=== PATIENT | female | born 1950 | race Caucasian/White ===

== ENCOUNTER 2019-10-02 21:13 | Inpatient (IN) ==
[2019-10-02] MEDS ORDERED: MORPHINE IV ONE (22:10)
[2019-10-02] MEDS ORDERED: ZOFRAN IV ONE (22:11)
[2019-10-02] MEDS ORDERED: BENADRYL IV ONE (22:23)
--- NOTE | 2019-10-02 22:24 | PROVIDER DOCUMENTATION ---
This chart was entered by Lizz Theodore Scribe, acting as scribe for Alejo Cruz MD. HPI-General Adult - General Chief Complaint: Fall Stated Complaint: Fall Time Seen by Provider: 10/02/19 21:32 Source: patient - History of Present Illness -Gen Adult Nature of Presenting Problems: pt is a 38 yr old female presenting via EMS post fall. pt complains of right hip/leg pain. pt admits tripping over a chair causing fall, landed on right hip, struck head during landing, pt denies LOC, is not on blood thinners. pt admits headache and right hip/leg pain. shortening and rotation present. Location of Pain/Injury: reports: head, pelvis (right), lower extremity (right upper leg) Pain Radiation: reports: no radiation Quality of Pain: reports: aching Severity: reports: moderate Onset/Duration: reports: this evening Timing: reports: still present Context/Activities at Onset: reports: recent trauma history (fall tonight) Modifying Factors: improves with: movement (increases pain) Associated Symptoms: reports: headaches, joint pain, trouble walking (unable to bear weight). denies: back/neck pain, chest pain, dizziness, muscle aches, nausea, sensory/motor loss, vomiting Similar Symptoms Previously?: No Recently seen or treated by another doctor?: No Review of Systems - Adult - REVIEW OF SYSTEMS - ADULT Constitutional: denies: chills, fever Eyes: reports: no symptoms reported Ears, Nose, Mouth & Throat: denies: ear pain, sinus problem, throat pain Cardiovascular: denies: chest pain, palpitations, syncope Respiratory: denies: cough, dyspnea on exertion, wheezing Gastrointestinal: denies: abdominal pain, nausea, vomiting Genitourinary: reports: no symptoms reported Musculoskeletal: reports: bone pain (right upper leg), back pain (chronic), joint pain (right hip). denies: neck pain Integumentary: reports: no symptoms reported Neurological: reports: headache/migraines. denies: dizziness/vertigo, loss of balance, syncope Psychiatric: reports: no symptoms reported Endocrine: reports: no symptoms reported Hematologic/Lymphatic: reports: no symptoms reported Allergic/Immunologic: reports: no symptoms reported All Other Systems: Reviewed and Negative Past History - Adult - PAST MEDICAL HISTORY-ADULT Review of Records: reports: Old Records Reviewed, Nursing Assessment Review, Medications Reviewed, Social history reviewed & non-contributory. Major Childhood Illnesses: reports: denies history Cardiovascular: reports: denies history Respiratory: reports: denies history Gastrointestinal: reports: denies history Obstetrical/Gynecological: reports: denies history Genitourinary: reports: denies history Musculoskeletal: reports: denies history Neurological: reports: denies history Endocrine/Immune: reports: denies history Other Conditions: reports: denies history - IMMUNIZATION STATUS Childhood Immunizations: See Nurse Assessment Flu Vaccine: See Nurse Assessment - FAMILY HISTORY Family History: reviewed, not pertinent - SOCIAL HISTORY Smoking: cigarettes Provider spent 3-5 mins advising pt. on dangers of tobacco.: Discussed manners to quit use, and f/u contacts for add'l counseling. Substance Use: denies Living Situation: family Physical Exam-General - PHYSICAL EXAM-ADULT Initial Vital Signs Reviewed: Yes - CONSTITUTIONAL General Appearance: appears well, alert, no apparent distress - EYES Eyes: PERRL/EOMI - HEAD, EARS, NOSE, MOUTH & THROAT HENMT: normocephalic/atraumatic, moist mucous membranes, normal ENT inspection - NECK Neck: non-tender, full range of motion, supple, normal inspection - RESPIRATORY Respiratory: chest non-tender, lungs clear, normal breath sounds, no respiratory distress, no accessory muscle use - CARDIOVASCULAR Cardiovascular: normal peripheral pulses, regular rate, rhythm, no edema - GASTROINTESTINAL (ABDOMEN) Abdominal Exam: normal bowel sounds, non tender, soft - LYMPHATIC Lymphatic: no adenopathy - MUSCULOSKELETAL Back Exam: normal inspection, no CVA tenderness, no vertebral tenderness Extremity: tenderness (right hip, right upper leg), other (shortening/rotation to right leg) - SKIN Integumentary: normal color, normal turgor, warm/dry - NEUROLOGIC Neurologic: grossly normal, no motor/sensory deficits - PSYCHIATRIC Psych/Mental Status: normal mood/affect Progress - PLAN OF CARE/RESULTS Progress/Plan/Lab Results: Orders Category Date Time Status XRAY PELVIS W/HIP 2-3VW RT [RAD] Stat Exams 10/02/19 21:32 Ordered - CONSULTS/PCP/HOSPITALIST Notification #1 *Consult/PCP/Hospitalist*: Dr Courtney Time Discussed: 22:10 Reason/Comments: discussed plan of care for pt consult Consult Disposition: Admit (admit to hospitalist, will consult in AM) #2 Consult: DR. LOCKWOOD Time Discussed: 22:20 Consult Disposition: Admit Departure - Departure Date of Disposition Decision: 10/02/19 Time of Disposition Decision: 21:51 DIAGNOSIS: Intertrochanteric fracture of right hip Disposition: ADMITTED INPATIENT 09 Certified Medical Emergency: Emergent Condition: Stable - Critical Care Note This patient required my direct & personal management of CC.: No Attestation - Physician/ GOPAL Attestation Patient care was provided by Advanced Practice Provider:: No The physician spent face to face time with patient:: Yes Advanced Practice Provider documentation review:: Supervising physician onsite and consulted in the evaluation and care of this patient. The physician did have a face to face encounter with the patient. This chart was documented by the indicated scribe, (Lizz Theodore, [place]) and accurately reflects the services I performed and decisions made by me, Alejo Cruz MD, as attested by the provider's signature.
[2019-10-02] MEDS ORDERED: ZOFRAN IV PRN (23:42)
[2019-10-02] MEDS ORDERED: TYLENOL PO PRN (23:42)
[2019-10-03 00:30] LABS: URINE SOURCE CLEAN CATCH
[2019-10-03] MEDS: MORPHINE IV PRN ×6 (00:30→19:26)
[2019-10-03 00:39] LABS: BILIRUBIN URINE NEGATIVE (NEGATIVE); BLOOD URINE NEGATIVE (NEGATIVE); COLOR STRAW; GLUCOSE URINE NEGATIVE (NEGATIVE); KETONE URINE NEGATIVE (NEGATIVE); LEUKOCYTES URINE NEGATIVE (NEGATIVE); NITRITE URINE NEGATIVE (NEGATIVE); PH URINE 7.5; PROTEIN URINE NEGATIVE (NEGATIVE); SP GRAVITY URINE 1.007; TURBIDITY URINE CLEAR (CLEAR); UR EPITHELIAL CELLS <10 /HPF (<10); URINE BACTERIA NEGATIVE /HPF; URINE RBC <10 /HPF (<10); URINE WBC <10 /HPF (<10); UROBILINOGEN URINE NORMAL (NORMAL)
[2019-10-03] MEDS ORDERED: NICODERM PATCH TD ONE (00:46)
[2019-10-03 01:14] LABS: BASO# 0.02 X1000 (0.0-0.2); BASO% 0.2 % (0.0-0.8); EOS# 0.02 X1000 (0.0-0.7); EOS% 0.2 % (0.0-10.0); HEMATOCRIT 37.6 % (37.0-47.0); HEMOGLOBIN 12.5 g/dL (12.0-16.0); LYMPH# 1.48 X1000 (1.2-3.4); MCH 31.8 PG (27-31); MCHC 33.2 g/dL (33-37); MCV 95.7 FL (81-99); MONO# 0.69 X1000 (0.11-0.59); MONO% 7.4 % (1.7-9.3); MPV 12.1 FL (7.4-10.4); NEUT# 7.06 X1000 (1.4-6.5); NEUT% 76.2 % (42.2-75.2); PLT 115 X1000 (130-400); RBC 3.93 XMIL (4.2-5.4); RDW 12.9 % (11.5-14.5); WBC 9.27 X1000 (4.8-10.8)
[2019-10-03 01:28] LABS: INR 1.05; PROTIME 13.9 Seconds (11.0-16.0)
[2019-10-03 01:29] LABS: PTT 29.5 Seconds (22.3-41.8)
[2019-10-03 01:33] LABS: AGAP 11; ALB/GLOB RATIO 1.6; ALBUMIN 4.2 g/dL (3.5-5.0); ALKALINE PHOSPHATASE 68 U/L (32-104); BUN 8 mg/dL (8-22); CALCIUM 9.2 mg/dL (8.8-10.2); CHLORIDE 100 mmol/L (98-107); COSMO 280; CREATININE 0.7 mg/dL (0.5-0.9); ESTIMATED GFR > 60; GLUCOSE 107 mg/dL (70-104); GOT 28 U/L (10-30); GPT 17 U/L (10-36); POTASSIUM 3.7 mmol/L (3.5-5.1); SODIUM 141 mmol/L (136-145); TCO2 30 mmol/L (25-35); TOTAL BILIRUBIN 0.65 mg/dL (0.20-1.00); TOTAL PROTEIN 6.9 g/dL (6.3-8.3)
[2019-10-03] MEDS: NS 1,000 ML IV SCH ×3 (03:12→19:31)
--- NOTE | 2019-10-03 04:24 | HISTORY AND PHYSICAL ---
CHIEF COMPLAINT: Fall. HPI: Mrs. Beasley is a very pleasant 68-year-old female who comes into the emergency room tonight after having a fall. She states that she felt like she hit the side of a chair and tripped. She fell backwards, hitting the back of her head and landing mostly on her right hip. The main reason she came in was right hip pain. She has a headache, 10 out of 10 right leg pain. The leg is visibly shortened and externally rotated. She was unable to bear weight. Her only past medical history is hypertension. Laboratory data is pending, however, an x-ray was obtained which showed a right intertrochanteric hip fracture. She will be admitted with surgical consultation. PAST MEDICAL HISTORY: See HPI. PREVIOUS SURGICAL HISTORY: Seven lower back surgeries, cervical spine surgery, a left wrist surgery, a right foot surgery, and 2 C-sections. SOCIAL HISTORY: She lives with her . She is retired. One pack per day smoker. Smoking cessation was gone over with the patient. She denies wanting to quit at this time. No alcohol. No illicit drugs. FAMILY HISTORY: Dad had coronary artery disease. Had his first ME at age 42. ALLERGIES: NO KNOWN DRUG ALLERGIES. HOME MEDICATIONS: 1. Lasix 20 mg p.o. daily. 2. Neurontin 400 mg p.o. daily. 3. Trazodone 150 mg p.o. at bedtime. 4. Butrans 1 patch transdermally every 7 days. 5. Lisinopril 20 mg p.o. q.a.m. REVIEW OF SYSTEMS: A 14 point review of systems was conducted with the patient. Pertinent positives are listed above in the HPI. All other systems reviewed and found to be negative. PHYSICAL EXAMINATION: VITAL SIGNS: Temperature 98.5, pulse 79, respirations 20, blood pressure 199/81, oxygen saturation 99% on room air. GENERAL: Pleasant 68-year-old female lying on the ER stretcher. She is alert and oriented x3. Answers questions appropriately. She is accompanied by her . Very supportive. She is in no acute distress. HEENT: Head is normocephalic. Posterior portion of her head is tender to palpation. There is a mild hematoma there. Pupils are equal, round, reactive to light. Extraocular eye movements intact. Sclera anicteric. Conjunctiva pink. Oral mucosa is moist. NECK: Supple. No JVD. No thyromegaly. Trachea is midline. No cervical lymphadenopathy. CARDIAC: S1, S2 appreciated. No murmurs, gallops, rubs. LUNGS: Clear to auscultation bilaterally. No rhonchi, wheeze, rales. Symmetric rise and fall of respirations. ABDOMEN: Soft, nondistended, nontender. Bowel sounds present all 4 quadrants. Normoactive. No pulsatile masses or organomegaly. EXTREMITIES: No clubbing, cyanosis or edema, 2+ pedal pulses bilaterally. MUSCULOSKELETAL: Right lower extremity is externally rotated and shorter than the left lower extremity. She is neurovascularly intact. She is able to wiggle her toes. Left lower extremity has 5/5 strength. SKIN: Warm, dry and intact. No acute lesions or rash. GENITOURINARY: No bladder distention. Patient voids. Otherwise deferred. NEUROLOGICAL: Alert and oriented x3. Cranial nerves 2-12 grossly intact. DIAGNOSTIC DATA: Right hip x-ray shows a right intertrochanteric hip fracture. Chest x-ray is pending. Laboratory data is pending. Urine is unremarkable. IMPRESSION: 1. Right intertrochanteric hip fracture. 2. Hypertension. 3. Headache secondary to fall with head trauma. 4. Tobacco abuse. PLAN: Admit patient to the surgical floor. Will get a CT scan of her head to rule out bleed. N.p.o. after midnight. NicoDerm patch 21 mg daily, morphine as needed for pain, Zofran for nausea, pain medication makes the patient itch. Will give the patient along with pain medication. Will review laboratory data when it is completed. Further recommendations based on patient's clinical course. Dictated by ANAY Dougherty for Winston Lane MD cc: ANAY Dougherty MD
--- NOTE | 2019-10-03 07:27 | Diag Imaging Result Doc PS360 ---
EXAM: XRAY PELVIS W/HIP 2-3VW RT 10/02/2019 HISTORY: right hip injury TECHNIQUE: AP portable pelvis and right hip COMMENT: There is an intertrochanteric fracture of the right femur. There are deformities in the inferior pubic ramus on the left which are presumably due to previous fracture. There is extensive postsurgical change in the lumbar spine and sacrum. IMPRESSION: Intertrochanteric fracture of the right femur. Electronically signed by Geronimo Clark 10/03/2019 7:24 AM
--- NOTE | 2019-10-03 07:28 | Diag Imaging Result Doc PS360 ---
EXAM: CHEST-1 VIEW 10/02/2019 HISTORY: right hip fracture TECHNIQUE: AP portable at 2151 COMMENT: There is no evidence of acute cardiac or pulmonary disease and no previous studies are available for comparison. IMPRESSION: No acute disease. Electronically signed by Geronimo Clark 10/03/2019 7:26 AM
--- NOTE | 2019-10-03 07:28 | Diag Imaging Result Doc PS360 ---
EXAM: FEMUR MIN 2 VIEWS RIGHT 10/02/2019 HISTORY: right upper thigh pain TECHNIQUE: Right femur two views COMMENT: There is some patchy osteoporosis in the distal femur and patella. There is no evidence of acute fracture or dislocation. IMPRESSION: No acute bony abnormality. Electronically signed by Geronimo Clark 10/03/2019 7:25 AM
[2019-10-03] MEDS: BENADRYL IV PRN ×3 (07:39→19:26)
--- NOTE | 2019-10-03 08:20 | Diag Imaging Result Doc PS360 ---
EXAM: CT HEAD/C-SPINE W/O CONTRAST INDICATION: fall hitting the back of head TECHNIQUE: This exam was performed using automated exposure control, adjustment of mA or kV according to patient size, and/or use of iterative reconstruction technique. COMPARISON: None. FINDINGS: Head: There is a chronic pontine lacunar infarct on the left. There is no definite acute infarct given the limited sensitivity of CT versus MRI. There is no discrete intracranial mass, mass effect, or intracranial hemorrhage. There is suggestion of mild scalp edema posteriorly on the right. The calvaria is intact. C-spine: There has been prior anterior cervical fusion at C5-6 and C6-7. Metallic hardware is in place. There is advanced degenerative facet arthropathy at multiple levels throughout the cervical spine. There is more moderate degenerative disc disease at multiple levels. These degenerative changes are causing bony foraminal stenosis at multiple levels. Otherwise, there is no discrete fracture, acute subluxation, or intrinsic osseous lesion. There are mild emphysematous changes at the lung apices. Surrounding soft tissues are essentially unremarkable, otherwise. IMPRESSION: 1.Chronic pontine lacunar infarct as described. No evidence of acute intracranial pathology. 2.Advanced multilevel degenerative arthropathy throughout the cervical spine but no evidence of fracture or other definite acute C-spine injury. Electronically signed by Tito Rodriguez 10/03/2019 8:18 AM
[2019-10-03] MEDS ORDERED: KEFZOL 1 GM/D5W 1 GM/50 ML IVPB IV ONE (09:00)
[2019-10-03] MEDS ORDERED: XYLOCAINE-MPF 2% ONE (09:46)
[2019-10-03] MEDS ORDERED: DIPRIVAN 1% ONE (09:46)
[2019-10-03] MEDS: LASIX PO SCH ×2 (10:00→13:54)
[2019-10-03] MEDS: NICODERM PATCH TD SCH ×2 (10:01→13:55)
[2019-10-03] MEDS: PRINIVIL PO SCH ×2 (10:01→13:54)
[2019-10-03] MEDS: NEURONTIN PO SCH ×6 (10:01→21:38)
--- NOTE | 2019-10-03 10:21 | ORTHOPAEDICS CONSULTATION ---
DATE: 10/03/2019 REASON FOR CONSULTATION: Intertrochanteric fracture of the right femur. HISTORY OF PRESENT ILLNESS: Ms. Beasley is a 68-year-old female who came to the emergency last night after having a fall at home. She states that she tripped over the leg of a chair and landed on the floor. She fell onto her right hip and developed immediate pain and was unable to stand up. Her came home and found her lying on the floor, and then transported her to the ER. Upon presentation to the ER, an x-ray was obtained that revealed a right intertrochanteric hip fracture. Orthopedics have been consulted for this. PAST MEDICAL HISTORY: Positive for hypertension. PAST SURGICAL HISTORY: Seven low back surgeries, cervical spine surgery, left wrist surgery, right foot surgery, and two sections. SOCIAL HISTORY: She lives at home with her . Retired. She is a 1 pack per day smoker. She denies any alcohol or illicit drug use. ALLERGIES: No known drug allergies. HOME MEDICATIONS: 1. Lasix 20 mg p.o. daily. 2. Neurontin 400 mg p.o. daily. 3. Trazodone 150 mg p.o. daily. 4. Lisinopril 20 mg p.o. daily. 5. Butrans 1 patch transdermally every 7 days. REVIEW OF SYSTEMS: A 10 point review of systems was negative except as mentioned in the HPI. PHYSICAL EXAMINATION: Vital Signs: Reveal a temperature of 98.2 degrees, a blood pressure of 146/65, and she is saturating 93% on room air at this time. General: Ms. Beasley is lying in bed, in no acute distress at present. She is complaining of pain to her right hip. Her right lower extremity is noted to be shortened and externally rotated. Her sensation is intact distally. She has good dorsiflexion and plantar flexion of her right foot, though she does complain of pain in her right hip when she does this. DIAGNOSTIC DATA: A right hip x-ray shows a right intertrochanteric hip fracture. She had a CT scan which was negative for any acute process. IMPRESSION: Right intertrochanteric hip fracture. PLAN: Surgery was discussed with Ms. Beasley this morning. Risks and benefits of surgery were also discussed including, but not limited to risks of anesthesia, bleeding, blood clots, nerve injury, infection, and . She wishes to proceed at this time. Dr. Casey will be seeing her at the clinic and plans to take her to the OR this afternoon. She will be having intramedullary nailing of the right femur. She is to get 1 g of Ancef and she has already been made NPO. Dictated by ANAY Barnhart for Tito Casey MD cc: Tito Casey MD
[2019-10-03] MEDS ORDERED: BENADRYL ONE (11:25)
[2019-10-03] MEDS ORDERED: KETAMINE ONE (11:47)
[2019-10-03] MEDS ORDERED: DECADRON ONE (11:47)
[2019-10-03] MEDS ORDERED: ZOFRAN ONE (11:47)
[2019-10-03] MEDS ORDERED: NEO-SYNEPHRINE ONE (12:14)
[2019-10-03] MEDS ORDERED: SODIUM CHLORIDE 0.9% 10 ML ONE (12:14)
[2019-10-03] MEDS: DILAUDID ONE ×2 (12:50→12:53)
--- NOTE | 2019-10-03 12:50 | OPERATIVE NOTE ---
PROCEDURE DATE: 10/03/2019 PREOPERATIVE DIAGNOSIS: Intertrochanteric right hip fracture. POSTOPERATIVE DIAGNOSIS: Intertrochanteric right hip fracture. PROCEDURE PERFORMED: Trochanteric fixation nail fixation, right hip. SURGEON: Jered Casey MD. MEDICAL SUPERINTENDENT: ANAY Koehler. Mr. Diaz was necessary for proper retraction and manipulation during the case. ANESTHESIA: General. COMPLICATIONS: None. PROCEDURE IN DETAIL: This 68-year-old female presents after a fall with a right hip fracture. Risks, benefits, and no guarantees were discussed, and she is willing to proceed. She was taken to the operating room and satisfactory anesthesia obtained. She was placed on the Sacul table and the right hip prepped and draped in the usual sterile fashion. A time-out was taken to confirm operative site, procedure, and patient. Gentle longitudinal traction was utilized to reduce the leg length in roughly 5 degrees of external rotation to set the rotation and reduce the fracture. The hip was prepped and draped in the usual sterile fashion. After ensuring proper time-out, a 1- inch incision was made proximal to the greater trochanter. Dissection was carried down through the greater trochanter to the tip of the trochanter. The TFN entry guide pin was then advanced through the tip of the trochanter and down the intramedullary canal. This was reamed with the entry reamer and exchanged for a ball-tip guidewire. The guidewire was placed down the intramedullary canal and a measuring garrett selected. A 340 x 11 nail was selected. The intramedullary canal was reamed with an 11 reamer, followed by a 12 reamer. The nail was inserted over the guidewire and the guidewire removed. An additional lateral incision was made at the level of the lesser trochanter and the helical blade guide pin passed across the nail and into the central aspect of the femoral head under multiplanar image guidance. The helical blade was selected and an 85 helical blade inserted over the guide. The guides were then removed and the C- arm used to verify accurate fracture reduction and hardware placement of the proximal aspect of the hip fracture. The C-arm was repositioned. Then, using distal locking perfect [place] technique, 1 distal locking bicortical screw was placed across the nail through an accessory lateral incision. A 44 mm screw was placed through this. Afterwards, the C-arm was used to verify accurate fracture reduction and hardware placement. The wounds were copiously irrigated with irrigant and then closed with 2-0 Vicryl, followed by skin fred. Sterile dressings completed the closure. The patient was recovered from anesthesia and transferred to the recovery room in stable condition. No intraoperative complications were noted. Instrument count and sponge count were correct at the time of closure. cc: Tito Casey MD
[2019-10-03] MEDS ORDERED: DILAUDID ONE (12:59)
[2019-10-03] MEDS ORDERED: MILK OF MAGNESIA PO PRN (13:54)
[2019-10-03] MEDS ORDERED: ZOFRAN IV PRN (13:54)
[2019-10-03] MEDS ORDERED: HALDOL IV PRN (14:00)
[2019-10-03] MEDS: TYLENOL PO SCH (14:13)
[2019-10-03] MEDS: OXY IR PO PRN ×2 (17:18→21:42)
[2019-10-03] MEDS: KEFZOL 1 GM/D5W 1 GM/50 ML IVPB IV SCH (17:19)
[2019-10-03] MEDS: DESYREL PO SCH (21:37)
[2019-10-03] MEDS: COLACE PO SCH (22:00)
[2019-10-03] MEDS: PERIDEX MT SCH (22:00)
[2019-10-04] MEDS: BENADRYL IV PRN ×5 (00:16→20:20)
[2019-10-04] MEDS: MORPHINE IV PRN ×8 (00:17→21:15)
[2019-10-04] MEDS: TYLENOL PO SCH ×3 (00:43→16:07)
[2019-10-04] MEDS: KEFZOL 1 GM/D5W 1 GM/50 ML IVPB IV SCH ×2 (02:45→09:04)
[2019-10-04] MEDS: OXY IR PO PRN ×6 (04:13→22:31)
[2019-10-04] MEDS: XARELTO PO SCH (05:43)
[2019-10-04] MEDS: NS 1,000 ML IV SCH ×2 (05:43→18:07)
[2019-10-04] MEDS: PERIDEX MT SCH ×3 (07:53→20:20)
[2019-10-04] MEDS: NEURONTIN PO SCH ×6 (07:53→20:21)
[2019-10-04] MEDS: NICODERM PATCH TD SCH ×2 (07:54→18:08)
[2019-10-04] MEDS: PRINIVIL PO SCH ×2 (07:54→18:08)
[2019-10-04] MEDS: LASIX PO SCH ×2 (07:55→18:09)
[2019-10-04] MEDS: FERROUS SULFATE PO SCH (07:55)
[2019-10-04 08:07] LABS: AGAP 11; BUN 9 mg/dL (8-22); CALCIUM 7.8 mg/dL (8.8-10.2); CHLORIDE 96 mmol/L (98-107); COSMO 271; CREATININE 0.8 mg/dL (0.5-0.9); ESTIMATED GFR > 60; GLUCOSE 142 mg/dL (70-104); POTASSIUM 3.4 mmol/L (3.5-5.1); SODIUM 135 mmol/L (136-145); TCO2 28 mmol/L (25-35)
[2019-10-04 08:30] LABS: HEMATOCRIT 25.9 % (37.0-47.0); HEMOGLOBIN 8.3 g/dL (12.0-16.0); MCH 30.9 PG (27-31); MCV 96.3 FL (81-99); MPV 12.9 FL (7.4-10.4); RBC 2.69 XMIL (4.2-5.4); RDW 12.8 % (11.5-14.5); WBC 6.62 X1000 (4.8-10.8)
[2019-10-04] MEDS ORDERED: NS 500 ML ONE (12:09)
--- NOTE | 2019-10-04 12:43 | PROGRESS NOTE ---
DATE: 10/04/2019 SUBJECTIVE: The patient reports feeling fine, feeling a little bit dizzy this morning. No blood in the stools or blood in the urine or vaginal bleeding. OBJECTIVE: Vital Signs: Temperature 98.1 degrees, heart rate 69, respiratory rate 16, blood pressure 85/43, O2 saturation 100% on room air. General: This is a 68-year-old female, lying in bed, in no acute distress. Cardiovascular: S1 and S2 heard. No murmurs, gallops, or rubs. Regular rate and rhythm. Respiratory: Clear bilaterally to auscultation. No work of breathing or using accessory muscles. Abdomen: Soft. Nontender to palpation. Bowel sounds present. No organomegaly. Extremities: Right hip covered by dressing. Neurological: Patient alert and oriented x3. Moves 4 extremities. LABORATORY DATA: Hemoglobin is 8.3 today and yesterday was 12.5. ASSESSMENT AND PLAN: 1. Right intertrochanteric hip fracture status post trochanteric fixation with nail fixation. Orthopedic following this patient. We will follow recommendations. Because blood pressure is low and hemoglobin has dropped 5 points, I will do hemoglobin and hematocrit q.6 hours and we will do CT of the abdomen and pelvis as well. 2. Hypertension. Actually the patient is hypotensive. We will hold any blood pressure medication. 3. Headache secondary to fall with head trauma. Apparently the condition is getting better. We will continue to monitor. 4. Tobacco abuse. Aware. cc: Alex Mckeon MD
--- NOTE | 2019-10-04 14:09 | ORTHOPAEDICS PROGRESS NOTE ---
DATE: 10/04/2019 SUBJECTIVE DATA: Ms Beasley seen postop day 1 of her right trochanteric fixation nail for her intertrochanteric hip fracture. She reports she is doing well at this time. She states her pain level is about a 3/10. She states she has not seen physical therapy yet. She denies dizziness, nausea, vomiting or fatigue. OBJECTIVE DATA: Has good sensation right lower extremity. Her bandages are clean and dry. There is good pedal pulses. There is good sensation. Her hemoglobin and hematocrit is currently 8.3 and 25.9. Her last blood pressure is 85/43. Will likely be giving her a unit of blood sometime today. ASSESSMENT: 1. Intertrochanteric hip fracture right hip with trochanteric fixation nail placement. 2. Hypotension. 3. Anemia. PLAN: We will plan to probably go ahead and give her a unit of blood at this time. Will see how she does with that. We will check back on her later on and see if she is ready for discharge. Dictated by ANAY Koehler for Tito Casey MD cc: ANAY Koehler MD
--- NOTE | 2019-10-04 15:30 | Diag Imaging Result Doc PS360 ---
EXAM: CT ABDOMEN/PELVIS W/WO CONTRAS 10/04/2019 HISTORY: r/o hematoma, hb dropping TECHNIQUE: This exam was performed using automated exposure control, adjustment of mA or kV according to patient size, and/or use of iterative reconstruction technique. COMMENT: There are no previous studies available for comparison. There are subcentimeter nodules adjacent to one another in the medial right middle lobe on image three. There is no evidence of acute pulmonary disease in the visualized portion of the chest. There are postsurgical changes in the spine. There are small calculi in the lower pole of both kidneys. No evidence of hydronephrosis is present. There are small calculi present in the gallbladder. The aorta is somewhat calcified but is not distended. There is patency of the mesenteric and renal arteries. There are calcifications in the proximal renal arteries bilaterally. There is an inferior vena cava filter. Some of the struts are seen outside of the confines of the inferior vena cava. There is no evidence of dilatation of the common bile duct. There is some mild periportal edema in the anterior right hepatic lobe. There is no evidence of mass or hydronephrosis in the kidneys. There is a tiny cortical cyst on the right. There are granulomata in the spleen. The adrenal glands are not enlarged. There is a fair amount of stool in the colon. The small bowel is not distended. Pelvis: There are multiple uterine fibroids. There is no evidence of free fluid. There is a [place] catheter in the bladder. There has been recent internal fixation of the right femoral neck. There has been previous fracture of the left inferior pubic ramus. There are postsurgical changes in the sacrum. There is what appears to be a subcutaneous hematoma which is partially imaged on the right laterally on image 85 measuring 2.6 cm x 14 mm. There is a small subcutaneous hematoma with gas at the level of the hips on the right measuring 2.7 cm in diameter. IMPRESSION: No evidence of intraperitoneal hematoma. Other chronic findings as described above. Postsurgical changes in the right femur and hip with subcutaneous hematoma tap. There may be additional hematoma formation inferior to the portion of the thigh which is included on the scan. Electronically signed by Geronimo Clark 10/04/2019 3:28 PM
[2019-10-04] MEDS: COLACE PO SCH (20:20)
[2019-10-04] MEDS: DESYREL PO SCH (20:21)
[2019-10-05] MEDS: TYLENOL PO SCH ×2 (00:57→08:41)
[2019-10-05] MEDS: MORPHINE IV PRN ×2 (00:57→05:35)
[2019-10-05] MEDS: BENADRYL IV PRN ×2 (00:58→05:35)
[2019-10-05] MEDS: XARELTO PO SCH (05:36)
[2019-10-05 07:28] LABS: HEMATOCRIT 29.8 % (37.0-47.0); MCH 32.3 PG (27-31); MCHC 33.6 g/dL (33-37); MCV 96.1 FL (81-99); MPV 12.4 FL (7.4-10.4); RBC 3.1 XMIL (4.2-5.4); RDW 13.3 % (11.5-14.5); WBC 5.11 X1000 (4.8-10.8)
[2019-10-05 07:33] LABS: AGAP 9; BUN 8 mg/dL (8-22); CALCIUM 8.2 mg/dL (8.8-10.2); CHLORIDE 102 mmol/L (98-107); COSMO 277; CREATININE 0.6 mg/dL (0.5-0.9); ESTIMATED GFR > 60; GLUCOSE 89 mg/dL (70-104); POTASSIUM 3.4 mmol/L (3.5-5.1); SODIUM 140 mmol/L (136-145); TCO2 29 mmol/L (25-35)
[2019-10-05] MEDS: NS 1,000 ML IV SCH (07:37)
[2019-10-05] MEDS: OXY IR PO PRN ×2 (08:41→12:03)
[2019-10-05] MEDS: NEURONTIN PO SCH ×2 (08:41→12:04)
[2019-10-05] MEDS: LASIX PO SCH (08:41)
[2019-10-05] MEDS: FERROUS SULFATE PO SCH (08:41)
[2019-10-05] MEDS: PRINIVIL PO SCH (08:41)
[2019-10-05] MEDS: PERIDEX MT SCH (08:42)
[2019-10-05] MEDS: NICODERM PATCH TD SCH (08:42)
[2019-10-05 11:25] VITALS: BP 118/50
--- NOTE | 2019-10-05 14:33 | ORTHOPAEDICS PROGRESS NOTE ---
DATE: 10/05/2019 Ms. Beasley is seen today status post fixation of her intertrochanteric hip fracture. Presently she is afebrile with stable vital signs. Her bandages are all clean and dry. She is being discharged home today. We will follow up with her in roughly 10 to 14 days. She can be mobilized partial weightbearing on the lower extremity. We will see her back for followup x-rays in roughly 10 days. cc: Tito Casey MD
[2019-10-07] MEDS ORDERED: BUPRENORPHINE 10 MCG/HR PATCH TD SCH (10:00)
--- NOTE | 2019-10-07 13:51 | DISCHARGE SUMMARY ---
ADMISSION DATE: 10/03/2019 DISCHARGE DATE: 10/05/2019 DISCHARGE DIAGNOSES: 1. Right intertrochanteric hip fracture. 2. Hypertension. 3. Headache secondary to fall with head trauma. 4. Tobacco abuse. PROCEDURES: 1. Hip and pelvis x-ray showed intertrochanteric fracture of the right femur. 2. Femur x-ray showed no acute bony abnormality. 3. Chest x-ray showed no acute disease. 4. Trochanteric nail fixation of the right hip performed by Dr. Casey. 5. Abdomen and pelvis CT showed no evidence of intraperitoneal hematoma with other chronic findings as described above. HOSPITAL COURSE: This is a 68-year-old female who came to the emergency department after she had a fall. She fell backward hitting the back of her head, landing mostly in her on her right hip. Here she was found to have a right hip fracture so Orthopedics was consulted who performed the procedure as above. Patient was doing fine. The patient was cleared by Orthopedics. Hemoglobin has dropped a little bit from 12.5 to 8.3. She was trying to be hypotensive but she was transfused 1 unit of blood. Hemoglobin back up to 10.0. The patient was doing okay. Not complaining of any nausea vomiting, or dizziness so this patient was cleared by orthopedics. Patient reports that she can do well with physical therapy at home so she declined going to rehab facility. We called transition social worker to set up home health services for this patient. The patient is going to be sent home with home health. DISCHARGE PHYSICAL EXAMINATION: Vital Signs: Temperature 98.2 degrees, heart rate 79, respiratory rate 18, blood pressure 118/50. O2 saturation 97% on room air. General: This is a 69-year-old, female lying in bed, in no acute distress. Cardiovascular: S1-S2 heard. No murmurs, gallops, or rubs. Regular rate and rhythm. Respiratory: Clear bilaterally to auscultation. No work of breathing or using accessory muscles. Abdomen: Soft, nontender to palpation. Bowel sounds present. No organomegaly. Extremities: No clubbing, cyanosis, or edema. Peripheral pulses present in both legs. Neurological: The patient is alert and oriented x3. Moves 4 extremities. DISCHARGE DISPOSITION: Home with home health. LIST OF MEDICATIONS: 1. Icar C1 tab p.o. daily. 2. Milk of magnesia p.r.n. constipation. 3. Xarelto 10 mg, 1 tablet p.o. daily. 4. Oxycodone IR 5 mg 1 tablet p.o. q.3 hours as needed for pain. 5. Butrans 1 patch per week. 6. Lisinopril 1 tablet p.o. every morning 20 mg. 7. Furosemide 20 mg 1 tablet p.o. daily. 8. Gabapentin 400 mg 1 tablet p.o. daily. 9. Trazodone 1 tablet p.o. at bedtime 150 mg. 10. Zanaflex 4 mg p.o. every 8 hours. TIME SPENT AT DISCHARGE: 32 minutes. cc: Alex Mckeon MD
== END 2019-10-05 14:13 | disposition home health service (06) | DRG 481 ==
LOC: ED 21:13 → SUATTDRO 10-03 00:46 → 4N 10-03 00:46
PROVIDERS: ATTEND Internal Medicine